=== PATIENT | male | born 1980 | race American Indian/Alaskan Native ===

== ENCOUNTER 2020-06-21 14:31 | Emergency (ER) | payer OTHER ==
[2020-06-21 16:30] VITALS: BP 149/92
[2020-06-21] MEDS ORDERED: IBUPROFEN 800 MG TAB PO ONE (17:16)
--- NOTE | 2020-06-21 17:16 | Emergency Department Report ---
ED Lower Extremity HPI - General Chief Complaint: Extremity Injury, Lower Stated Complaint: LT KNEE PAIN Time Seen by Provider: 06/21/20 17:02 Source: patient Mode of arrival: Ambulatory Limitations: No Limitations - History of Present Illness Initial Comments: 38-year-old male presents to the ER today with complaints of left knee pain. Patient states that he was standing when he suddenly felt a pop in the anterior medial aspect of his left knee. He states that this incident occurred yesterday. Since then has been having increased pain to the left knee with associated swelling. He states the pain is worse when he walks and applies weight. He denies any prior issues with his left knee. He reports no other symptoms at this time. Complaint: knee injury -: Sudden (yesterday ) - Related Data Previous Rx's Medication Instructions Recorded Last Taken Type Ibuprofen [Motrin] 800 mg PO Q8HR PRN #30 tablet 06/21/20 Unknown Rx Tramadol HCl/Acetaminophen 1 each PO Q4H PRN #12 tablet 06/21/20 Unknown Rx [Ultracet Tablet] Allergies Allergy/AdvReac Type Severity Reaction Status Date / Time No Known Allergies Allergy Unverified 06/21/20 16:30 ED Review of Systems ROS: Stated complaint: LT KNEE PAIN Other details as noted in HPI ED Past Medical Hx - Past Medical History Previous Medical History?: No - Medications Home Medications: Home Medications Medication Instructions Recorded Confirmed Last Taken Type Ibuprofen [Motrin] 800 mg PO Q8HR PRN #30 tablet 06/21/20 Unknown Rx Tramadol HCl/Acetaminophen 1 each PO Q4H PRN #12 tablet 06/21/20 Unknown Rx [Ultracet Tablet] ED Physical Exam - General Limitations: No Limitations ED Course Vital Signs 06/21/20 16:21 Temperature 98.5 F Pulse Rate 89 Respiratory 18 Rate Blood Pressure 149/92 [Right] O2 Sat by Pulse 98 Oximetry ED Lower Extremity MDM - Radiology Data Radiology results: report reviewed Patient: SANJU CHAPARRO MR#: [id number] : 1980 Acct:[id number] Age/Sex: 40 / M ADM Date: 06/21/20 Loc: ED Attending Dr: Ordering Physician: VALENTINA RODRIGUEZ Date of Service: 06/21/20 Procedure(s): XR knee 3V LT Accession Number(s): [id number] cc: VALENTINA Rubio Time In Minutes: Left knee-3 views INDICATION: knee pain pain/swelling/pop sound. COMPARISON: None. IMPRESSION: No acute osseous abnormality. Soft tissues are normal. Normal alignment. Minimal tricompartmental degenerative arthrosis. Signer Name: Riaz Franco MD Signed: 06/21/2020 5:47 PM Workstation Name: [id number] Transcribed By: DINO Dictated By: Riaz Franco MD Electronically Authenticated By: Riaz Franco MD Signed Date/Time: 06/21/201746 DD/ 45 TD/TT: Critical care attestation.: If time is entered above; I have spent that time in minutes in the direct care of this critically ill patient, excluding procedure time. ED Disposition Clinical Impression: Knee pain Disposition: - TO HOME OR SELFCARE Is pt being admited?: No Does the pt Need Aspirin: No Condition: Stable Instructions: Acute Knee Pain, Adult, [id number] Additional Instructions: Take the motrin/ultram as prescribed. REst, ice and elevate leg as often as possible for the next few days. I recommend that you follow-up with international trade specialist listed on your discharge instructions if your symptoms persist for another week. Return to the ER if your symptoms changes or worsens in any way. Prescriptions: Ibuprofen [Motrin] 800 mg PO Q8HR PRN #30 tablet PRN Reason: KNee pain Tramadol HCl/Acetaminophen [Ultracet Tablet] 1 each PO Q4H PRN #12 tablet PRN Reason: pain Referrals: DIVYA FELIX MD [Staff Physician] - 3-5 Days Forms: Work/School Release Form(ED) Time of Disposition: 18:12
--- NOTE | 2020-06-21 17:52 | XRay Report ---
Left knee-3 views INDICATION: knee pain pain/swelling/pop sound. COMPARISON: None. IMPRESSION: No acute osseous abnormality. Soft tissues are normal. Normal alignment. Minimal tric ompartmental degenerative arthrosis. Signer Name: Riaz Franco MD Signed: 06/21/2020 5:47 PM Workstation Name: [id number]
== END 2020-06-22 18:30 | disposition home or self-care (01) ==
LOC: ED 14:31
DX: M25.562 Pain in left knee (principal); M79.89 Other specified soft tissue disorders; Z79.1 Long term (current) use of non-steroidal anti-inflammatories (NSAID); Z79.899 Other long term (current) drug therapy